=== PATIENT | male | born 1945 | race Caucasian/White ===

== ENCOUNTER 2022-04-04 16:23 | Inpatient (IN) | payer SELFPAY ==
[2022-04-04 16:29] VITALS: BMI 25.4
[2022-04-04 18:27] LABS: VENOUS BASE EXCESS 3.5 mmol/L (-2-2); VENOUS O2 SATURATION 79.6 % (70-80); VENOUS PCO2 43.7 mmHg (38-52); VENOUS PH 7.43 (7.310-7.410)
[2022-04-04 18:31] LABS: BASO % 0.1 % (0-2.0); HEMATOCRIT 40.9 % (35.4-49); HEMOGLOBIN 14.8 GM/dL (11.7-16.9); MCH 32.5 pg (25.7-33.7); MCHC 36.1 g/dl (32.0-35.9); MEAN PLT VOLUME 8.3 fl (7.5-11.1); MONO % 3.9 % (3.8-10.2); PH,URINE 5.5 (5.0-8.0); PLATELET COUNT 112 10^3/uL (134-434); RBC 4.54 M/mm3 (4.00-5.60); RDW 12.8 % (11.9-15.9); URINE APPEARANCE Error; URINE BILIRUBIN NEGATIVE (NEGATIVE); URINE COLOR YELLOW; URINE GLUCOSE (UA) 3+ (NEGATIVE); URINE KETONE NEGATIVE (NEGATIVE); URINE LEUK ESTERASE NEGATIVE (NEGATIVE); URINE NITRITE NEGATIVE (NEGATIVE); URINE PROTEIN TRACE (NEGATIVE); URINE UROBILINOGEN 0.2 mg/dL (0.2-1.0)
[2022-04-04 18:57] LABS: INR 0.99 (0.83-1.09); PROTHROMBIN TIME (PATIENT) 11.5 SEC (9.7-13.0)
[2022-04-04 19:00] LABS: ACTIVATED PTT 32.1 SECONDS (25.2-36.5)
[2022-04-04 19:01] LABS: CHLORIDE 88 mmol/L (98-107); POTASSIUM 3.7 mmol/L (3.5-5.1); SODIUM 126 mmol/L (136-145)
[2022-04-04 19:03] LABS: CALCIUM 8.1 mg/dL (8.5-10.1)
[2022-04-04 19:04] LABS: ALBUMIN 3.4 g/dl (3.4-5.0); ANION GAP 11 MMOL/L (8-16); BLOOD UREA NITROGEN 20.2 mg/dL (7-18); CO2 26 mmol/L (21-32)
[2022-04-04 19:07] LABS: CREATININE 1.1 mg/dL (0.55-1.3); SGOT/AST 28 U/L (15-37); SGPT/ALT 21 U/L (13-61)
[2022-04-04 19:08] LABS: TOT PROT 7.1 g/dl (6.4-8.2)
[2022-04-04 19:09] LABS: BILIRUBIN,TOTAL 0.6 mg/dL (0.2-1)
[2022-04-04 19:10] LABS: ALK PHOS 81 U/L (45-117)
[2022-04-04 19:12] LABS: N-TERMINAL BNP 41.4 pg/ml (5-125)
[2022-04-04 19:26] LABS: GLUCOSE,RANDOM 652 mg/dL (74-106)
[2022-04-04] MEDS ORDERED: SODIUM CHLORIDE 0.9% 500 ML INFUS.BAG IV ONE (19:44)
[2022-04-04] MEDS ORDERED: INSULIN (NOVOLOG) ASPART 100 UNITS/ML 10ML VIAL SQ ONE (19:45)
[2022-04-04] MEDS ORDERED: DEXAMETHASONE SOD PHOSPHATE 10 MG/1 ML VIAL IVPUSH ONE (19:46)
[2022-04-04] MEDS ORDERED: REMDESIVIR 200 MG in SODIUM CHLORIDE 250 ML IVPB ONE (19:46)
[2022-04-04] MEDS ORDERED: DEXAMETHASONE SOD PHOSPHATE 10 MG/1 ML VIAL ONE (20:00)
[2022-04-04] MEDS ORDERED: INSULIN (NOVOLOG) ASPART 100 UNITS/ML 10ML VIAL ONE (20:01)
[2022-04-05] MEDS ORDERED: INSULIN (LEVEMIR) 100 UNITS/ML UNITS SQ ONE ×2 (02:57→09:14)
[2022-04-05] MEDS ORDERED: DEXTROSE 50%-WATER - 25 GM/50 ML VIAL IVPUSH PRN (03:00)
[2022-04-05] MEDS: ALBUTEROL SO4 HFA INHALER IH SCH ×6 (03:32→23:23)
[2022-04-05 05:58] LABS: BASO % 0.1 % (0-2.0); HEMATOCRIT 37.1 % (35.4-49); HEMOGLOBIN 13.7 GM/dL (11.7-16.9); LYMPH % 9.6 % (8-40); MCH 32.4 pg (25.7-33.7); MCHC 36.9 g/dl (32.0-35.9); MEAN CELL VOLUME 87.8 fl (80-96); MEAN PLT VOLUME 7.6 fl (7.5-11.1); MONO % 2.4 % (3.8-10.2); NEUT % 87.9 % (42.8-82.8); PLATELET COUNT 103 10^3/uL (134-434); RBC 4.22 M/mm3 (4.00-5.60); RDW 12.7 % (11.9-15.9)
[2022-04-05 06:22] LABS: POTASSIUM 3.7 mmol/L (3.5-5.1)
[2022-04-05 06:25] LABS: CALCIUM 7.7 mg/dL (8.5-10.1)
[2022-04-05 06:26] LABS: ALBUMIN 2.9 g/dl (3.4-5.0); BLOOD UREA NITROGEN 15.6 mg/dL (7-18); MAGNESIUM 1.8 mg/dL (1.8-2.4)
[2022-04-05 06:30] LABS: CREATININE 0.7 mg/dL (0.55-1.3)
[2022-04-05 06:31] LABS: BILIRUBIN,TOTAL 0.6 mg/dL (0.2-1); TOT PROT 6.3 g/dl (6.4-8.2)
[2022-04-05] MEDS: INSULIN SLIDING SCALE (NOVOLOG) 1 VIAL SQ SCH ×4 (07:40→23:31)
[2022-04-05] MEDS ORDERED: ALBUTEROL SO4 HFA INHALER IH ONE (07:45)
[2022-04-05] MEDS ORDERED: ENOXAPARIN NA (PORCINE) 40 MG/0.4 ML DISP.SYRIN SQ ONE (09:13)
[2022-04-05] MEDS: INSULIN (LEVEMIR) 100 UNITS/ML UNITS SQ SCH ×2 (09:17→23:30)
[2022-04-05] MEDS: ENOXAPARIN NA (PORCINE) 40 MG/0.4 ML DISP.SYRIN SQ SCH (09:17)
[2022-04-05] MEDS ORDERED: INSULIN (LEVEMIR) 100 UNITS/ML UNITS SQ SCH (10:00)
[2022-04-05] MEDS: INSULIN (NOVOLOG) ASPART 100 UNITS/ML 10ML VIAL SQ SCH ×2 (10:32→16:02)
[2022-04-05] MEDS ORDERED: DEXAMETHASONE SOD PHOSPHATE 10 MG/1 ML VIAL ONE (23:27)
[2022-04-05] MEDS: DEXAMETHASONE SOD PHOSPHATE 10 MG/1 ML VIAL IVPUSH SCH (23:30)
[2022-04-06] MEDS: ALBUTEROL SO4 HFA INHALER IH SCH ×5 (04:00→21:47)
[2022-04-06 07:23] LABS: HEMATOCRIT 38.3 % (35.4-49); HEMOGLOBIN 13.9 GM/dL (11.7-16.9); LYMPH % 9.4 % (8-40); MCH 32.7 pg (25.7-33.7); MCHC 36.4 g/dl (32.0-35.9); MEAN CELL VOLUME 89.7 fl (80-96); MONO % 4.7 % (3.8-10.2); NEUT % 85.9 % (42.8-82.8); PLATELET COUNT 117 10^3/uL (134-434); RBC 4.27 M/mm3 (4.00-5.60); RDW 12.7 % (11.9-15.9); WHITE BLOOD COUNT 4.9 K/mm3 (4.0-10.0)
[2022-04-06 07:42] LABS: POTASSIUM 4.1 mmol/L (3.5-5.1)
[2022-04-06 07:43] LABS: BLOOD UREA NITROGEN 23.8 mg/dL (7-18); CALCIUM 8.3 mg/dL (8.5-10.1)
[2022-04-06 07:47] LABS: CREATININE 0.8 mg/dL (0.55-1.3)
[2022-04-06] MEDS: INSULIN SLIDING SCALE (NOVOLOG) 1 VIAL SQ SCH ×4 (08:32→21:51)
[2022-04-06] MEDS ORDERED: ENOXAPARIN NA (PORCINE) 40 MG/0.4 ML DISP.SYRIN SQ ONE (08:43)
[2022-04-06] MEDS ORDERED: LISINOPRIL 5 MG TABLET ONE (08:43)
[2022-04-06] MEDS ORDERED: TAMSULOSIN HCL 0.4 MG CAP ONE (08:43)
[2022-04-06] MEDS: INSULIN (LEVEMIR) 100 UNITS/ML UNITS SQ SCH ×2 (08:47→21:50)
[2022-04-06] MEDS: TAMSULOSIN HCL 0.4 MG CAP PO SCH (08:47)
[2022-04-06] MEDS: LISINOPRIL 5 MG TABLET PO SCH (09:12)
[2022-04-06] MEDS: ENOXAPARIN NA (PORCINE) 40 MG/0.4 ML DISP.SYRIN SQ SCH (09:13)
[2022-04-06] MEDS ORDERED: REMDESIVIR 100 MG in SODIUM CHLORIDE 250 ML IVPB SCH (10:00)
[2022-04-06] MEDS: INSULIN (NOVOLOG) ASPART 100 UNITS/ML 10ML VIAL SQ SCH ×2 (12:20→17:17)
[2022-04-06] MEDS ORDERED: INSULIN (NOVOLOG) ASPART 100 UNITS/ML 10ML VIAL SQ ONE (14:16)
[2022-04-06] MEDS ORDERED: INSULIN REGULAR HUMAN 100 UNITS/ML *VIAL IVPUSH ONE (14:16)
[2022-04-06] MEDS: ATORVASTATIN CA 20 MG TABLET (FP) PO SCH (21:47)
[2022-04-06] MEDS: DEXAMETHASONE SOD PHOSPHATE 10 MG/1 ML VIAL IVPUSH SCH (21:48)
[2022-04-07] MEDS: ALBUTEROL SO4 HFA INHALER IH SCH ×7 (00:15→23:58)
[2022-04-07] MEDS: INSULIN (LEVEMIR) 100 UNITS/ML UNITS SQ SCH ×3 (06:50→23:59)
[2022-04-07] MEDS: INSULIN SLIDING SCALE (NOVOLOG) 1 VIAL SQ SCH ×4 (06:51→23:58)
[2022-04-07] MEDS: INSULIN (NOVOLOG) ASPART 100 UNITS/ML 10ML VIAL SQ SCH ×4 (06:51→19:07)
[2022-04-07 07:10] LABS: POTASSIUM 3.9 mmol/L (3.5-5.1)
[2022-04-07 07:13] LABS: HEMATOCRIT 36.9 % (35.4-49); HEMOGLOBIN 13.2 GM/dL (11.7-16.9); LYMPH % 7.1 % (8-40); MCH 32.1 pg (25.7-33.7); MCHC 35.7 g/dl (32.0-35.9); MEAN CELL VOLUME 90.1 fl (80-96); MEAN PLT VOLUME 8.3 fl (7.5-11.1); MONO % 3.9 % (3.8-10.2); PLATELET COUNT 125 10^3/uL (134-434); RDW 12.6 % (11.9-15.9); WHITE BLOOD COUNT 5.2 K/mm3 (4.0-10.0)
[2022-04-07 07:14] LABS: BLOOD UREA NITROGEN 24.9 mg/dL (7-18)
[2022-04-07 07:17] LABS: CREATININE 0.7 mg/dL (0.55-1.3)
[2022-04-07] MEDS ORDERED: INSULIN (NOVOLOG) ASPART 100 UNITS/ML 10ML VIAL SQ ONE (08:30)
[2022-04-07] MEDS ORDERED: INSULIN (LEVEMIR) 100 UNITS/ML UNITS SQ ONE (08:30)
[2022-04-07] MEDS: TAMSULOSIN HCL 0.4 MG CAP PO SCH (08:41)
[2022-04-07] MEDS: REMDESIVIR 100 MG in SODIUM CHLORIDE 250 ML IVPB SCH (11:21)
[2022-04-07] MEDS: LISINOPRIL 5 MG TABLET PO SCH (11:22)
[2022-04-07] MEDS: ATORVASTATIN CA 20 MG TABLET (FP) PO SCH (23:49)
[2022-04-08] MEDS: ALBUTEROL SO4 HFA INHALER IH SCH ×6 (04:10→22:39)
[2022-04-08] MEDS: INSULIN SLIDING SCALE (NOVOLOG) 1 VIAL SQ SCH ×4 (06:32→21:31)
[2022-04-08] MEDS: INSULIN (NOVOLOG) ASPART 100 UNITS/ML 10ML VIAL SQ SCH ×3 (06:57→16:42)
[2022-04-08] MEDS: INSULIN (LEVEMIR) 100 UNITS/ML UNITS SQ SCH ×2 (06:59→21:29)
[2022-04-08] MEDS: TAMSULOSIN HCL 0.4 MG CAP PO SCH (08:04)
[2022-04-08 09:50] LABS: BASO % 0.1 % (0-2.0); HEMOGLOBIN 13.1 GM/dL (11.7-16.9); LYMPH % 23.3 % (8-40); MCH 31.4 pg (25.7-33.7); MCHC 35.5 g/dl (32.0-35.9); MEAN CELL VOLUME 88.4 fl (80-96); MEAN PLT VOLUME 8.3 fl (7.5-11.1); NEUT % 67.6 % (42.8-82.8); PLATELET COUNT 147 10^3/uL (134-434); RBC 4.19 M/mm3 (4.00-5.60); RDW 12.8 % (11.9-15.9); WHITE BLOOD COUNT 5.1 K/mm3 (4.0-10.0)
[2022-04-08 10:02] LABS: CALCIUM 7.8 mg/dL (8.5-10.1)
[2022-04-08 10:06] LABS: CREATININE 0.5 mg/dL (0.55-1.3)
[2022-04-08] MEDS: LISINOPRIL 5 MG TABLET PO SCH (10:56)
[2022-04-08] MEDS: REMDESIVIR 100 MG in SODIUM CHLORIDE 250 ML IVPB SCH (10:56)
[2022-04-08] MEDS ORDERED: POTASSIUM CHLORIDE TABS 20 MEQ TABLET.ER (FP) PO ONE (15:25)
[2022-04-08] MEDS: ATORVASTATIN CA 20 MG TABLET (FP) PO SCH (21:29)
[2022-04-09] MEDS: ALBUTEROL SO4 HFA INHALER IH SCH ×6 (04:21→22:19)
[2022-04-09] MEDS: INSULIN SLIDING SCALE (NOVOLOG) 1 VIAL SQ SCH ×4 (06:08→22:11)
[2022-04-09] MEDS: INSULIN (LEVEMIR) 100 UNITS/ML UNITS SQ SCH ×2 (06:27→22:14)
[2022-04-09 08:26] LABS: HEMATOCRIT 38.2 % (35.4-49); HEMOGLOBIN 13.8 GM/dL (11.7-16.9); MCH 31.9 pg (25.7-33.7); MEAN CELL VOLUME 88.5 fl (80-96); MEAN PLT VOLUME 7.8 fl (7.5-11.1); PLATELET COUNT 166 10^3/uL (134-434); RBC 4.32 M/mm3 (4.00-5.60); RDW 12.7 % (11.9-15.9); WHITE BLOOD COUNT 5.1 K/mm3 (4.0-10.0)
[2022-04-09] MEDS: INSULIN (NOVOLOG) ASPART 100 UNITS/ML 10ML VIAL SQ SCH ×3 (08:28→17:08)
[2022-04-09 08:39] LABS: CHLORIDE 98 mmol/L (98-107); SODIUM 133 mmol/L (136-145)
[2022-04-09 08:43] LABS: BLOOD UREA NITROGEN 11.9 mg/dL (7-18); CALCIUM 7.6 mg/dL (8.5-10.1); CO2 26 mmol/L (21-32); GLUCOSE,RANDOM 77 mg/dL (74-106)
[2022-04-09 08:44] LABS: MAGNESIUM 1.4 mg/dL (1.8-2.4)
[2022-04-09 08:46] LABS: CREATININE 0.5 mg/dL (0.55-1.3); PHOSPHOROUS 3.7 mg/dL (2.5-4.9)
[2022-04-09 08:49] LABS: ANION GAP 9 MMOL/L (8-16); POTASSIUM 2.9 mmol/L (3.5-5.1)
[2022-04-09] MEDS ORDERED: MAGNESIUM SULF 50% (8.12 MEQ/2 ML-1 GM VIAL) IVPB ONE (09:04)
[2022-04-09] MEDS: TAMSULOSIN HCL 0.4 MG CAP PO SCH (09:53)
[2022-04-09] MEDS: LISINOPRIL 5 MG TABLET PO SCH (09:53)
[2022-04-09] MEDS: POTASSIUM CHLORIDE ORAL LIQUID 20 MEQ/15 ML PO SCH ×2 (09:53→22:18)
[2022-04-09] MEDS: REMDESIVIR 100 MG in SODIUM CHLORIDE 250 ML IVPB SCH (10:28)
[2022-04-09] MEDS ORDERED: POTASSIUM CHLORIDE TABS 20 MEQ TABLET.ER (FP) PO ONE (14:10)
[2022-04-09] MEDS: ATORVASTATIN CA 20 MG TABLET (FP) PO SCH (22:18)
[2022-04-10] MEDS: ALBUTEROL SO4 HFA INHALER IH SCH ×6 (03:38→22:30)
[2022-04-10] MEDS: INSULIN SLIDING SCALE (NOVOLOG) 1 VIAL SQ SCH ×5 (06:22→21:58)
[2022-04-10] MEDS: INSULIN (LEVEMIR) 100 UNITS/ML UNITS SQ SCH ×2 (06:23→21:54)
[2022-04-10] MEDS: INSULIN (NOVOLOG) ASPART 100 UNITS/ML 10ML VIAL SQ SCH ×3 (06:24→17:24)
[2022-04-10 07:55] LABS: POTASSIUM 3.9 mmol/L (3.5-5.1)
[2022-04-10 08:03] LABS: BLOOD UREA NITROGEN 12.7 mg/dL (7-18); CALCIUM 7.9 mg/dL (8.5-10.1)
[2022-04-10 08:04] LABS: MAGNESIUM 1.5 mg/dL (1.8-2.4)
[2022-04-10 08:06] LABS: CREATININE 0.5 mg/dL (0.55-1.3)
[2022-04-10 08:07] LABS: PHOSPHOROUS 2.8 mg/dL (2.5-4.9)
[2022-04-10 08:55] LABS: HEMOGLOBIN 13.7 GM/dL (11.7-16.9); MCHC 36.2 g/dl (32.0-35.9); MEAN CELL VOLUME 88.4 fl (80-96); MEAN PLT VOLUME 7.9 fl (7.5-11.1); PLATELET COUNT 204 10^3/uL (134-434); RBC 4.29 M/mm3 (4.00-5.60); RDW 12.5 % (11.9-15.9); WHITE BLOOD COUNT 4.7 K/mm3 (4.0-10.0)
[2022-04-10] MEDS: POTASSIUM CHLORIDE ORAL LIQUID 20 MEQ/15 ML PO SCH ×2 (10:39→21:54)
[2022-04-10] MEDS: TAMSULOSIN HCL 0.4 MG CAP PO SCH (10:39)
[2022-04-10] MEDS: LISINOPRIL 5 MG TABLET PO SCH (10:39)
[2022-04-10] MEDS ORDERED: MAGNESIUM SULF 50% (8.12 MEQ/2 ML-1 GM VIAL) IVPB ONE (14:30)
[2022-04-10] MEDS: DEXAMETHASONE 4 MG TABLET (FP) PO SCH (18:47)
[2022-04-10] MEDS: ATORVASTATIN CA 20 MG TABLET (FP) PO SCH (21:54)
[2022-04-11] MEDS: ALBUTEROL SO4 HFA INHALER IH SCH ×6 (03:33→23:00)
[2022-04-11] MEDS: INSULIN (LEVEMIR) 100 UNITS/ML UNITS SQ SCH ×2 (06:31→21:12)
[2022-04-11] MEDS: INSULIN (NOVOLOG) ASPART 100 UNITS/ML 10ML VIAL SQ SCH ×3 (06:31→17:08)
[2022-04-11] MEDS: INSULIN SLIDING SCALE (NOVOLOG) 1 VIAL SQ SCH ×4 (06:32→21:13)
[2022-04-11 07:12] LABS: HEMATOCRIT 40.2 % (35.4-49); HEMOGLOBIN 14.3 GM/dL (11.7-16.9); MCHC 35.6 g/dl (32.0-35.9); MEAN PLT VOLUME 7.9 fl (7.5-11.1); PLATELET COUNT 236 10^3/uL (134-434); RBC 4.46 M/mm3 (4.00-5.60); RDW 12.7 % (11.9-15.9); WHITE BLOOD COUNT 3.4 K/mm3 (4.0-10.0)
[2022-04-11 07:34] LABS: CALCIUM 8.3 mg/dL (8.5-10.1)
[2022-04-11 07:35] LABS: ALBUMIN 2.8 g/dl (3.4-5.0); BLOOD UREA NITROGEN 18.5 mg/dL (7-18); MAGNESIUM 2.1 mg/dL (1.8-2.4)
[2022-04-11 07:38] LABS: PHOSPHOROUS 3.2 mg/dL (2.5-4.9)
[2022-04-11 07:39] LABS: BILIRUBIN,TOTAL 0.7 mg/dL (0.2-1); TOT PROT 6.4 g/dl (6.4-8.2)
[2022-04-11 07:41] LABS: CREATININE 0.6 mg/dL (0.55-1.3)
[2022-04-11] MEDS: TAMSULOSIN HCL 0.4 MG CAP PO SCH (10:27)
[2022-04-11] MEDS: LISINOPRIL 5 MG TABLET PO SCH (10:27)
[2022-04-11] MEDS: POTASSIUM CHLORIDE ORAL LIQUID 20 MEQ/15 ML PO SCH (10:27)
[2022-04-11] MEDS: DEXAMETHASONE 4 MG TABLET (FP) PO SCH (10:27)
[2022-04-11] MEDS: ATORVASTATIN CA 20 MG TABLET (FP) PO SCH (21:12)
[2022-04-12] MEDS: ALBUTEROL SO4 HFA INHALER IH SCH ×6 (02:27→22:31)
[2022-04-12] MEDS: INSULIN (NOVOLOG) ASPART 100 UNITS/ML 10ML VIAL SQ SCH ×3 (06:18→16:29)
[2022-04-12] MEDS: INSULIN (LEVEMIR) 100 UNITS/ML UNITS SQ SCH ×2 (06:18→22:30)
[2022-04-12] MEDS: INSULIN SLIDING SCALE (NOVOLOG) 1 VIAL SQ SCH ×4 (06:19→22:30)
[2022-04-12 08:14] LABS: BASO % 0.1 % (0-2.0); HEMATOCRIT 38.6 % (35.4-49); HEMOGLOBIN 13.3 GM/dL (11.7-16.9); LYMPH % 5.9 % (8-40); MCH 31.1 pg (25.7-33.7); MCHC 34.5 g/dl (32.0-35.9); MEAN PLT VOLUME 7.5 fl (7.5-11.1); MONO % 5.4 % (3.8-10.2); NEUT % 88.6 % (42.8-82.8); PLATELET COUNT 268 10^3/uL (134-434); RBC 4.29 M/mm3 (4.00-5.60); RDW 12.7 % (11.9-15.9)
[2022-04-12 08:37] LABS: POTASSIUM 4.3 mmol/L (3.5-5.1)
[2022-04-12 08:43] LABS: ALBUMIN 2.6 g/dl (3.4-5.0); BLOOD UREA NITROGEN 22.6 mg/dL (7-18); CALCIUM 8.1 mg/dL (8.5-10.1); MAGNESIUM 1.9 mg/dL (1.8-2.4)
[2022-04-12 08:45] LABS: CREATININE 0.6 mg/dL (0.55-1.3)
[2022-04-12 08:46] LABS: BILIRUBIN,TOTAL 0.6 mg/dL (0.2-1); PHOSPHOROUS 3.3 mg/dL (2.5-4.9)
[2022-04-12 09:04] LABS: ERYTHROCYTE SEDIMENTATION RATE 61 mm/hr (0-20)
[2022-04-12] MEDS: LISINOPRIL 5 MG TABLET PO SCH (09:06)
[2022-04-12] MEDS: DEXAMETHASONE 4 MG TABLET (FP) PO SCH (09:06)
[2022-04-12] MEDS: TAMSULOSIN HCL 0.4 MG CAP PO SCH (09:06)
[2022-04-12] MEDS: ENOXAPARIN NA (PORCINE) 40 MG/0.4 ML DISP.SYRIN SQ SCH (13:47)
[2022-04-12] MEDS: ATORVASTATIN CA 20 MG TABLET (FP) PO SCH (22:25)
[2022-04-13] MEDS: ALBUTEROL SO4 HFA INHALER IH SCH ×6 (02:57→22:26)
[2022-04-13] MEDS: INSULIN (LEVEMIR) 100 UNITS/ML UNITS SQ SCH ×2 (06:31→22:25)
[2022-04-13] MEDS: INSULIN (NOVOLOG) ASPART 100 UNITS/ML 10ML VIAL SQ SCH ×2 (06:32→17:05)
[2022-04-13] MEDS: INSULIN SLIDING SCALE (NOVOLOG) 1 VIAL SQ SCH ×4 (06:32→22:25)
[2022-04-13] MEDS: DEXAMETHASONE 4 MG TABLET (FP) PO SCH (09:39)
[2022-04-13] MEDS: LISINOPRIL 5 MG TABLET PO SCH (09:40)
[2022-04-13] MEDS: ENOXAPARIN NA (PORCINE) 40 MG/0.4 ML DISP.SYRIN SQ SCH (09:40)
[2022-04-13] MEDS: TAMSULOSIN HCL 0.4 MG CAP PO SCH (09:41)
[2022-04-13 10:04] LABS: HEMATOCRIT 37.2 % (35.4-49); HEMOGLOBIN 13.5 GM/dL (11.7-16.9); MCH 32.4 pg (25.7-33.7); MCHC 36.2 g/dl (32.0-35.9); MEAN CELL VOLUME 89.6 fl (80-96); MEAN PLT VOLUME 8.1 fl (7.5-11.1); PLATELET COUNT 245 10^3/uL (134-434); RBC 4.15 M/mm3 (4.00-5.60); RDW 12.5 % (11.9-15.9); WHITE BLOOD COUNT 7.2 K/mm3 (4.0-10.0)
[2022-04-13 10:17] LABS: POTASSIUM 4.1 mmol/L (3.5-5.1)
[2022-04-13 10:18] LABS: CALCIUM 8.3 mg/dL (8.5-10.1)
[2022-04-13 10:19] LABS: BLOOD UREA NITROGEN 22.2 mg/dL (7-18); MAGNESIUM 1.6 mg/dL (1.8-2.4)
[2022-04-13 10:22] LABS: CREATININE 0.7 mg/dL (0.55-1.3); PHOSPHOROUS 2.5 mg/dL (2.5-4.9)
[2022-04-13] MEDS ORDERED: INSULIN SLIDING SCALE (NOVOLOG) 1 VIAL SQ SCH (16:30)
[2022-04-13] MEDS: ATORVASTATIN CA 20 MG TABLET (FP) PO SCH (22:26)
[2022-04-14] MEDS: ALBUTEROL SO4 HFA INHALER IH SCH ×6 (02:26→23:35)
[2022-04-14] MEDS: INSULIN (NOVOLOG) ASPART 100 UNITS/ML 10ML VIAL SQ SCH ×3 (06:10→16:59)
[2022-04-14] MEDS: INSULIN SLIDING SCALE (NOVOLOG) 1 VIAL SQ SCH ×4 (06:11→21:38)
[2022-04-14] MEDS ORDERED: INSULIN (LEVEMIR) 100 UNITS/ML UNITS SQ SCH ×2 (07:00→21:47)
[2022-04-14] MEDS: DEXAMETHASONE 4 MG TABLET (FP) PO SCH (10:16)
[2022-04-14] MEDS: ENOXAPARIN NA (PORCINE) 40 MG/0.4 ML DISP.SYRIN SQ SCH (10:16)
[2022-04-14] MEDS: TAMSULOSIN HCL 0.4 MG CAP PO SCH (10:16)
[2022-04-14] MEDS: LISINOPRIL 5 MG TABLET PO SCH (10:16)
[2022-04-14 11:34] LABS: POTASSIUM 3.6 mmol/L (3.5-5.1)
[2022-04-14 11:36] LABS: ALBUMIN 2.8 g/dl (3.4-5.0); CALCIUM 8.3 mg/dL (8.5-10.1)
[2022-04-14 11:37] LABS: BLOOD UREA NITROGEN 17.9 mg/dL (7-18); MAGNESIUM 1.6 mg/dL (1.8-2.4)
[2022-04-14 11:40] LABS: CREATININE 0.7 mg/dL (0.55-1.3)
[2022-04-14 11:42] LABS: BILIRUBIN,TOTAL 0.5 mg/dL (0.2-1); TOT PROT 6.2 g/dl (6.4-8.2)
[2022-04-14] MEDS ORDERED: SODIUM CHLORIDE 250 ML IV STA (13:30)
[2022-04-14] MEDS ORDERED: MAGNESIUM 1GM/D5W 100ML - 100 ML IVPB IVPB ONE (14:00)
[2022-04-14 20:29] LABS: POTASSIUM 3.8 mmol/L (3.5-5.1)
[2022-04-14 20:31] LABS: CALCIUM 8.3 mg/dL (8.5-10.1)
[2022-04-14 20:32] LABS: BLOOD UREA NITROGEN 21.2 mg/dL (7-18); MAGNESIUM 1.7 mg/dL (1.8-2.4)
[2022-04-14 20:35] LABS: CREATININE 0.9 mg/dL (0.55-1.3)
[2022-04-14 20:45] VITALS: RESP 18
[2022-04-14] MEDS ORDERED: MAGNESIUM SULF 50% (8.12 MEQ/2 ML-1 GM VIAL) IVPB ONE (21:00)
[2022-04-14] MEDS: ATORVASTATIN CA 20 MG TABLET (FP) PO SCH (21:38)
[2022-04-14] MEDS: INSULIN (LEVEMIR) 100 UNITS/ML UNITS SQ SCH (21:38)
[2022-04-15] MEDS: ALBUTEROL SO4 HFA INHALER IH SCH ×6 (03:39→22:54)
[2022-04-15] MEDS: INSULIN SLIDING SCALE (NOVOLOG) 1 VIAL SQ SCH ×4 (06:40→21:37)
[2022-04-15] MEDS: INSULIN (NOVOLOG) ASPART 100 UNITS/ML 10ML VIAL SQ SCH ×3 (06:41→16:57)
[2022-04-15 07:08] LABS: HEMATOCRIT 36.1 % (35.4-49); MEAN CELL VOLUME 88.9 fl (80-96); MEAN PLT VOLUME 7.1 fl (7.5-11.1); PLATELET COUNT 260 10^3/uL (134-434); RBC 4.06 M/mm3 (4.00-5.60); RDW 12.8 % (11.9-15.9); WHITE BLOOD COUNT 5.3 K/mm3 (4.0-10.0)
[2022-04-15 07:22] LABS: POTASSIUM 3.7 mmol/L (3.5-5.1)
[2022-04-15 07:26] LABS: BLOOD UREA NITROGEN 18.1 mg/dL (7-18); MAGNESIUM 1.8 mg/dL (1.8-2.4)
[2022-04-15 07:29] LABS: CREATININE 0.6 mg/dL (0.55-1.3); PHOSPHOROUS 3.4 mg/dL (2.5-4.9)
[2022-04-15] MEDS: INSULIN (LEVEMIR) 100 UNITS/ML UNITS SQ SCH ×2 (10:59→11:02)
[2022-04-15] MEDS: TAMSULOSIN HCL 0.4 MG CAP PO SCH (11:01)
[2022-04-15] MEDS: ENOXAPARIN NA (PORCINE) 40 MG/0.4 ML DISP.SYRIN SQ SCH (11:01)
[2022-04-15] MEDS: LISINOPRIL 5 MG TABLET PO SCH (11:04)
[2022-04-15] MEDS ORDERED: INSULIN (LEVEMIR) 100 UNITS/ML UNITS SQ SCH ×2 (11:15)
[2022-04-15] MEDS: ATORVASTATIN CA 20 MG TABLET (FP) PO SCH (21:37)
[2022-04-16] MEDS: ALBUTEROL SO4 HFA INHALER IH SCH ×4 (02:29→15:30)
[2022-04-16] MEDS: INSULIN SLIDING SCALE (NOVOLOG) 1 VIAL SQ SCH ×3 (06:25→16:34)
[2022-04-16] MEDS: INSULIN (NOVOLOG) ASPART 100 UNITS/ML 10ML VIAL SQ SCH ×3 (06:25→16:35)
[2022-04-16] MEDS ORDERED: INSULIN (LEVEMIR) 100 UNITS/ML UNITS SQ SCH ×4 (07:00→22:00)
[2022-04-16] MEDS ORDERED: INSULIN (NOVOLOG) ASPART 100 UNITS/ML 10ML VIAL SQ SCH (07:32)
[2022-04-16] MEDS: TAMSULOSIN HCL 0.4 MG CAP PO SCH (08:06)
[2022-04-16 08:11] LABS: HEMOGLOBIN 14.2 GM/dL (11.7-16.9); MCH 32.2 pg (25.7-33.7); MCHC 36.5 g/dl (32.0-35.9); MEAN CELL VOLUME 88.2 fl (80-96); MEAN PLT VOLUME 7.1 fl (7.5-11.1); PLATELET COUNT 282 10^3/uL (134-434); RBC 4.42 M/mm3 (4.00-5.60); RDW 12.7 % (11.9-15.9); WHITE BLOOD COUNT 8.3 K/mm3 (4.0-10.0)
[2022-04-16 08:26] LABS: POTASSIUM 3.8 mmol/L (3.5-5.1)
[2022-04-16 08:33] LABS: CALCIUM 8.3 mg/dL (8.5-10.1)
[2022-04-16 08:34] LABS: BLOOD UREA NITROGEN 14.2 mg/dL (7-18)
[2022-04-16 08:35] LABS: CREATININE 0.6 mg/dL (0.55-1.3)
[2022-04-16] MEDS: ENOXAPARIN NA (PORCINE) 40 MG/0.4 ML DISP.SYRIN SQ SCH (09:00)
[2022-04-16] MEDS: LISINOPRIL 5 MG TABLET PO SCH (09:00)
[2022-04-16 14:28] VITALS: BP 117/67; PULSE 97; TEMP 97.9
== END 2022-04-16 18:55 | disposition home or self-care (01) | DRG 137 ==
LOC: JER 16:23 → OBSVTOIN 04-05 00:54 → INTOOBSV 04-05 00:54 → JERBED 04-05 00:54 → J4S 04-06 13:34
PROVIDERS: ADMIT Internal Medicine; ATTEND Internal Medicine
PROC: XW033E5 Introduction of Remdesivir Anti-infective into Peripheral Vein, Percutaneous Approach, New Technology Group 5 (ICD-10-PCS; principal; 2022-04-04)
DX: U07.1 COVID-19 (principal); E11.00 Type 2 diabetes mellitus with hyperosmolarity without nonketotic hyperglycemic-hyperosmolar coma (NKHHC); J12.82 Pneumonia due to coronavirus disease 2019; E11.40 Type 2 diabetes mellitus with diabetic neuropathy, unspecified; E83.42 Hypomagnesemia; E87.1 Hypo-osmolality and hyponatremia; R04.2 Hemoptysis; E78.5 Hyperlipidemia, unspecified; I10 Essential (primary) hypertension; M54.16 Radiculopathy, lumbar region; N40.0 Benign prostatic hyperplasia without lower urinary tract symptoms; R09.02 Hypoxemia; E87.6 Hypokalemia
CPT/HCPCS: 0241U-QW; 36415; 71045-TC-FY; 71046-TC-FY; 71275-TC; 74174-TC; 80048; 80053; 80061; 81003; 82803; 82962; 83036; 83735; 83880; 84100; 84443; 84484; 85025; 85027; 85379; 85610; 85651; 85730; 86140; 86480; 87086; 93005; 93010; 94010; 94761; 99285-25; C9399; J1100; Q9967

== ENCOUNTER 2023-06-11 15:36 | Inpatient (IN) | payer SELFPAY ==
[2023-06-11 17:40] LABS: INR 0.99 (0.83-1.09); PROTHROMBIN TIME (PATIENT) 11.2 SEC (9.7-13.0)
[2023-06-11 17:53] LABS: CHLORIDE 88 mmol/L (98-107); SODIUM 125 mmol/L (136-145)
[2023-06-11 17:55] LABS: ALBUMIN 3.6 g/dl (3.4-5.0); CALCIUM 8.8 mg/dL (8.5-10.1); CO2 28 mmol/L (21-32)
[2023-06-11 17:56] LABS: BLOOD UREA NITROGEN 5.9 mg/dL (7-18); GLUCOSE,RANDOM 103 mg/dL (74-106); MAGNESIUM 1.6 mg/dL (1.8-2.4)
[2023-06-11 17:58] LABS: CREATININE 0.5 mg/dL (0.55-1.3); SGPT/ALT 83 U/L (13-61)
[2023-06-11 17:59] LABS: SGOT/AST 66 U/L (15-37)
[2023-06-11 18:00] LABS: BILIRUBIN,TOTAL 1.3 mg/dL (0.2-1); TOT PROT 6.7 g/dl (6.4-8.2)
[2023-06-11 18:01] LABS: ALK PHOS 53 U/L (45-117)
[2023-06-11 18:03] LABS: ANION GAP 8 mmol/L (4-13); POTASSIUM 2.6 mmol/L (3.5-5.1)
[2023-06-11 18:33] LABS: BASO % 0.3 % (0-2.0); EOS % 0.3 % (0-4.5); HEMATOCRIT 40.1 % (35.4-49); LYMPH % 29.2 % (8-40); MCH 33.8 pg (25.7-33.7); MCHC 36.5 g/dl (32.0-35.9); MEAN CELL VOLUME 92.7 fl (80-96); MEAN PLT VOLUME 6.3 fl (7.5-11.1); MONO % 15.2 % (3.8-10.2); PLATELET COUNT 155 10^3/uL (134-434); RBC 4.33 M/mm3 (4.00-5.60); RDW 13.3 % (11.9-15.9); WHITE BLOOD COUNT 3.9 K/mm3 (4.0-10.0)
[2023-06-11 18:42] LABS: HEMOGLOBIN 14.6 GM/dL (11.7-16.9)
[2023-06-11 18:55] LABS: EPI CELLS 1 /uL (0-25.1); HYALINE CASTS 0 /uL (0-3.1); PH,URINE 6.5 (5.0-8.0); URINE APPEARANCE CLEAR; URINE BACTERIA 5 /uL (0-1359); URINE BILIRUBIN NEGATIVE (NEGATIVE); URINE COLOR YELLOW; URINE GLUCOSE (UA) NEGATIVE (NEGATIVE); URINE KETONE NEGATIVE (NEGATIVE); URINE LEUK ESTERASE TRACE (NEGATIVE); URINE NITRITE NEGATIVE (NEGATIVE); URINE PROTEIN TRACE (NEGATIVE); URINE RBC 5 /uL (0-23.9); URINE WBC 10 /uL (0-25.8)
[2023-06-11] MEDS ORDERED: POTASSIUM CHLORIDE ORAL LIQUID 20 MEQ/15 ML ONE (18:56)
[2023-06-11] MEDS ORDERED: MAGNESIUM SULFATE IN WATER 2 GM/50 ML IVPB IVPB ONE (18:56)
[2023-06-11] MEDS: POTASSIUM CHLORIDE ORAL LIQUID 20 MEQ/15 ML PO ONE (19:03)
[2023-06-11] MEDS: MAGNESIUM SULFATE IN WATER 2 GM/50 ML IVPB IVPB ONE (19:03)
[2023-06-11] MEDS ORDERED: KCL 10 MEQ IVPB 20 MEQ/200 ML INFUS.BAG IVPB ONE (20:13)
[2023-06-11] MEDS: SODIUM CHLORIDE 0.9% 500 ML INFUS.BAG IV ONE (20:25)
[2023-06-11] MEDS: KCL 10 MEQ IVPB 10 MEQ/100 ML INFUS.BAG IVPB SCH (20:25)
[2023-06-11] MEDS ORDERED: SODIUM CHLORIDE 1,000 ML with POTASSIUM CHLORIDE 40 MEQ IV SCH (21:15)
[2023-06-11] MEDS ORDERED: KCL 10 MEQ IVPB 10 MEQ/100 ML INFUS.BAG IVPB ONE (22:23)
[2023-06-12] MEDS: POTASSIUM CHLORIDE 40 MEQ in SODIUM CHLORIDE 1,000 ML IV SCH ×2 (00:24→21:39)
[2023-06-12] MEDS: amLODIPine BESYLATE 5 MG TABLET (FP) PO ONE (04:43)
[2023-06-12 06:44] LABS: HEMATOCRIT 38.5 % (35.4-49); HEMOGLOBIN 14.1 GM/dL (11.7-16.9); MCH 33.9 pg (25.7-33.7); MCHC 36.5 g/dl (32.0-35.9); MEAN PLT VOLUME 6.8 fl (7.5-11.1); PLATELET COUNT 150 10^3/uL (134-434); RBC 4.14 M/mm3 (4.00-5.60); RDW 13.6 % (11.9-15.9); WHITE BLOOD COUNT 4.4 K/mm3 (4.0-10.0)
[2023-06-12 07:02] LABS: POTASSIUM 3.4 mmol/L (3.5-5.1)
[2023-06-12 07:07] LABS: CALCIUM 8.5 mg/dL (8.5-10.1)
[2023-06-12 07:08] LABS: ALBUMIN 3.3 g/dl (3.4-5.0); BLOOD UREA NITROGEN 5.9 mg/dL (7-18)
[2023-06-12 07:11] LABS: CREATININE 0.4 mg/dL (0.55-1.3); MAGNESIUM 1.7 mg/dL (1.8-2.4); PHOSPHOROUS 2.8 mg/dL (2.5-4.9); TOT PROT 6.2 g/dl (6.4-8.2)
[2023-06-12 07:13] LABS: BILIRUBIN,TOTAL 2.2 mg/dL (0.2-1)
[2023-06-12] MEDS: TAMSULOSIN HCL 0.4 MG CAP PO SCH (08:14)
[2023-06-12] MEDS: ENOXAPARIN NA (PORCINE) 40 MG/0.4 ML DISP.SYRIN SQ SCH (10:15)
[2023-06-12] MEDS: LISINOPRIL 5 MG TABLET PO SCH (10:16)
[2023-06-12] MEDS: MAGNESIUM 2GM/50ML STERILE WATER IVPB IVPB ONE (10:16)
[2023-06-12 11:44] LABS: BILIRUBIN,DIRECT 0.5 mg/dL (0.0-0.2)
[2023-06-12] MEDS: POTASSIUM CHLORIDE ORAL LIQUID 20 MEQ/15 ML PO ONE (11:56)
[2023-06-12] MEDS ORDERED: ATORVASTATIN CA 40 MG TABLET (FP) PO SCH (22:00)
[2023-06-12 23:04] LABS: URINE APPEARANCE CLEAR; URINE BILIRUBIN NEGATIVE (NEGATIVE); URINE COLOR YELLOW; URINE GLUCOSE (UA) NEGATIVE (NEGATIVE); URINE KETONE NEGATIVE (NEGATIVE); URINE LEUK ESTERASE NEGATIVE (NEGATIVE); URINE NITRITE NEGATIVE (NEGATIVE); URINE PROTEIN NEGATIVE (NEGATIVE); URINE UROBILINOGEN 4.0 E.U/dl mg/dL (0.2-1.0)
[2023-06-13 08:16] LABS: BASO % 0.4 % (0-2.0); EOS % 0.7 % (0-4.5); HEMATOCRIT 37.5 % (35.4-49); HEMOGLOBIN 13.9 GM/dL (11.7-16.9); LYMPH % 19.4 % (8-40); MCH 34.7 pg (25.7-33.7); MCHC 37.2 g/dl (32.0-35.9); MEAN CELL VOLUME 93.2 fl (80-96); MEAN PLT VOLUME 6.9 fl (7.5-11.1); MONO % 13.9 % (3.8-10.2); NEUT % 65.6 % (42.8-82.8); PLATELET COUNT 159 10^3/uL (134-434); RBC 4.02 M/mm3 (4.00-5.60); WHITE BLOOD COUNT 4.4 K/mm3 (4.0-10.0)
[2023-06-13 08:42] LABS: CHLORIDE 97 mmol/L (98-107); SODIUM 135 mmol/L (136-145)
[2023-06-13 09:06] LABS: CALCIUM 8.8 mg/dL (8.5-10.1)
[2023-06-13 09:07] LABS: ALBUMIN 3.3 g/dl (3.4-5.0); BLOOD UREA NITROGEN 8.5 mg/dL (7-18); CO2 26 mmol/L (21-32); GLUCOSE,RANDOM 106 mg/dL (74-106)
[2023-06-13 09:10] LABS: CREATININE 0.4 mg/dL (0.55-1.3); SGOT/AST 50 U/L (15-37); SGPT/ALT 67 U/L (13-61)
[2023-06-13 09:11] LABS: TOT PROT 6.3 g/dl (6.4-8.2)
[2023-06-13 09:12] LABS: BILIRUBIN,TOTAL 1.4 mg/dL (0.2-1)
[2023-06-13 09:13] LABS: ALK PHOS 46 U/L (45-117)
[2023-06-13 09:24] LABS: ANION GAP 12 mmol/L (4-13); POTASSIUM 2.9 mmol/L (3.5-5.1)
[2023-06-13] MEDS: LORazepam 1 MG TABLET PO ONE (10:19)
[2023-06-13] MEDS: ASPIRIN COATED 81 MG TABLET.EC PO SCH (10:19)
[2023-06-13] MEDS: LISINOPRIL 10 MG TABLET PO SCH (10:23)
[2023-06-13] MEDS: amLODIPine BESYLATE 5 MG TABLET (FP) PO SCH (10:23)
[2023-06-13] MEDS: MAGNESIUM SULF 50% (8.12 MEQ/2 ML-1 GM VIAL) IVPB ONE (11:04)
[2023-06-13] MEDS: POTASSIUM CHLORIDE ORAL LIQUID 20 MEQ/15 ML PO ONE (11:04)
[2023-06-13] MEDS: POTASSIUM CHLORIDE TABS 20 MEQ TABLET.ER (FP) PO ONE (14:57)
[2023-06-13] MEDS: THIAMINE HCL 200 MG/2 ML VIAL IVPB SCH (23:45)
[2023-06-14 07:54] LABS: POTASSIUM 3.5 mmol/L (3.5-5.1)
[2023-06-14] MEDS: TAMSULOSIN HCL 0.4 MG CAP PO SCH (07:57)
[2023-06-14 08:01] LABS: ALBUMIN 3.4 g/dl (3.4-5.0); BLOOD UREA NITROGEN 7.2 mg/dL (7-18); MAGNESIUM 1.8 mg/dL (1.8-2.4)
[2023-06-14 08:02] LABS: HEMATOCRIT 41.4 % (35.4-49); HEMOGLOBIN 15.1 GM/dL (11.7-16.9); MCH 34.5 pg (25.7-33.7); MCHC 36.4 g/dl (32.0-35.9); MEAN CELL VOLUME 94.9 fl (80-96); MEAN PLT VOLUME 6.7 fl (7.5-11.1); PLATELET COUNT 164 10^3/uL (134-434); RBC 4.37 M/mm3 (4.00-5.60); RDW 13.8 % (11.9-15.9); WHITE BLOOD COUNT 6.3 K/mm3 (4.0-10.0)
[2023-06-14 08:04] LABS: CREATININE 0.5 mg/dL (0.55-1.3); PHOSPHOROUS 3.4 mg/dL (2.5-4.9)
[2023-06-14 08:05] LABS: TOT PROT 6.6 g/dl (6.4-8.2)
[2023-06-14 08:06] LABS: BILIRUBIN,TOTAL 1.5 mg/dL (0.2-1)
[2023-06-14 15:35] LABS: POTASSIUM 3.9 mmol/L (3.5-5.1)
[2023-06-14 15:38] LABS: CALCIUM 8.7 mg/dL (8.5-10.1)
[2023-06-14 15:39] LABS: BLOOD UREA NITROGEN 9.1 mg/dL (7-18)
[2023-06-14 15:42] LABS: CREATININE 0.5 mg/dL (0.55-1.3)
[2023-06-14] MEDS: SODIUM CHLORIDE 1,000 ML IV SCH (20:52)
[2023-06-15 07:14] LABS: POTASSIUM 3.4 mmol/L (3.5-5.1)
[2023-06-15 07:24] LABS: CALCIUM 8.6 mg/dL (8.5-10.1)
[2023-06-15 07:25] LABS: ALBUMIN 3.1 g/dl (3.4-5.0); MAGNESIUM 1.6 mg/dL (1.8-2.4)
[2023-06-15 07:27] LABS: BILIRUBIN,DIRECT 0.5 mg/dL (0.0-0.2)
[2023-06-15 07:28] LABS: CREATININE 0.4 mg/dL (0.55-1.3); PHOSPHOROUS 3.8 mg/dL (2.5-4.9)
[2023-06-15 07:29] LABS: BILIRUBIN,TOTAL 1.6 mg/dL (0.2-1); TOT PROT 6.1 g/dl (6.4-8.2)
[2023-06-15] MEDS ORDERED: MAGNESIUM SULF 50% (8.12 MEQ/2 ML-1 GM VIAL) IVPB ONE (08:06)
[2023-06-15] MEDS: FOLIC ACID 1 MG TABLET (FP) PO SCH (10:11)
[2023-06-15] MEDS: MULTIVITAMINS THER W-MINERALS COMBO TABLET (FP) PO SCH (10:11)
[2023-06-15] MEDS: MAGNESIUM SULFATE IN WATER 2 GM/50 ML IVPB IVPB ONE (10:11)
[2023-06-15] MEDS: POTASSIUM CHLORIDE ORAL LIQUID 20 MEQ/15 ML PO ONE (13:54)
[2023-06-16 07:30] LABS: BASO % 0.2 % (0-2.0); EOS % 0.5 % (0-4.5); HEMATOCRIT 37.6 % (35.4-49); HEMOGLOBIN 13.7 GM/dL (11.7-16.9); LYMPH % 13.9 % (8-40); MCH 34.5 pg (25.7-33.7); MCHC 36.3 g/dl (32.0-35.9); MEAN PLT VOLUME 6.8 fl (7.5-11.1); MONO % 11.8 % (3.8-10.2); NEUT % 73.6 % (42.8-82.8); PLATELET COUNT 157 10^3/uL (134-434); RBC 3.96 M/mm3 (4.00-5.60); RDW 13.6 % (11.9-15.9); WHITE BLOOD COUNT 7.6 K/mm3 (4.0-10.0)
[2023-06-16 07:36] LABS: POTASSIUM 3.1 mmol/L (3.5-5.1)
[2023-06-16 07:49] LABS: ALBUMIN 3.1 g/dl (3.4-5.0); BLOOD UREA NITROGEN 10.2 mg/dL (7-18); CALCIUM 8.3 mg/dL (8.5-10.1)
[2023-06-16 07:52] LABS: CREATININE 0.4 mg/dL (0.55-1.3)
[2023-06-16 07:54] LABS: BILIRUBIN,TOTAL 1.7 mg/dL (0.2-1); TOT PROT 6.1 g/dl (6.4-8.2)
[2023-06-16] MEDS: MAGNESIUM SULF 50% (8.12 MEQ/2 ML-1 GM VIAL) IVPB ONE (09:47)
[2023-06-17 08:20] LABS: BASO % 0.3 % (0-2.0); EOS % 0.8 % (0-4.5); HEMATOCRIT 35.1 % (35.4-49); LYMPH % 15.7 % (8-40); MCH 34.4 pg (25.7-33.7); MEAN PLT VOLUME 6.7 fl (7.5-11.1); MONO % 11.5 % (3.8-10.2); NEUT % 71.7 % (42.8-82.8); PLATELET COUNT 178 10^3/uL (134-434); RBC 3.78 M/mm3 (4.00-5.60); RDW 13.1 % (11.9-15.9); WHITE BLOOD COUNT 6.4 K/mm3 (4.0-10.0)
[2023-06-17] MEDS: POTASSIUM CHLORIDE ORAL LIQUID 20 MEQ/15 ML PO ONE (08:20)
[2023-06-17 08:36] LABS: ALBUMIN 2.9 g/dl (3.4-5.0); BLOOD UREA NITROGEN 6.7 mg/dL (7-18); CALCIUM 8.2 mg/dL (8.5-10.1); MAGNESIUM 1.6 mg/dL (1.8-2.4)
[2023-06-17 08:39] LABS: CREATININE 0.4 mg/dL (0.55-1.3)
[2023-06-17 08:40] LABS: TOT PROT 5.9 g/dl (6.4-8.2)
[2023-06-17 08:41] LABS: BILIRUBIN,TOTAL 1.2 mg/dL (0.2-1)
[2023-06-17 09:29] LABS: N-TERMINAL BNP 132.6 pg/ml (5-450)
[2023-06-17] MEDS: MAGNESIUM 2GM/50ML STERILE WATER IVPB IVPB ONE (10:44)
[2023-06-17] MEDS: POTASSIUM CHLORIDE ORAL LIQUID 20 MEQ/15 ML PO SCH (10:45)
[2023-06-17] MEDS: amLODIPine BESYLATE 5 MG TABLET (FP) PO ONE (10:55)
[2023-06-17] MEDS: SODIUM CHLORIDE 1 GM TABLET PO SCH (17:20)
[2023-06-18 07:35] LABS: BASO % 0.4 % (0-2.0); EOS % 0.5 % (0-4.5); HEMATOCRIT 35.6 % (35.4-49); HEMOGLOBIN 13.2 GM/dL (11.7-16.9); LYMPH % 15.8 % (8-40); MCH 34.4 pg (25.7-33.7); MCHC 36.9 g/dl (32.0-35.9); MEAN CELL VOLUME 93.2 fl (80-96); MEAN PLT VOLUME 6.6 fl (7.5-11.1); MONO % 12.1 % (3.8-10.2); NEUT % 71.2 % (42.8-82.8); PLATELET COUNT 203 10^3/uL (134-434); RBC 3.82 M/mm3 (4.00-5.60); RDW 13.3 % (11.9-15.9); WHITE BLOOD COUNT 6.1 K/mm3 (4.0-10.0)
[2023-06-18 07:50] LABS: POTASSIUM 3.9 mmol/L (3.5-5.1)
[2023-06-18 07:59] LABS: BLOOD UREA NITROGEN 9.4 mg/dL (7-18); CALCIUM 8.4 mg/dL (8.5-10.1)
[2023-06-18 08:02] LABS: CREATININE 0.4 mg/dL (0.55-1.3)
[2023-06-18 08:03] LABS: BILIRUBIN,TOTAL 1.2 mg/dL (0.2-1)
[2023-06-18 08:04] LABS: TOT PROT 6.4 g/dl (6.4-8.2)
[2023-06-18] MEDS ORDERED: SODIUM CHLORIDE 1 GM TABLET PO SCH (08:15)
[2023-06-18] MEDS: MAGNESIUM 2GM/50ML STERILE WATER IVPB IVPB SCH (09:38)
[2023-06-18] MEDS: SODIUM CHLORIDE 1 GM TABLET PO ONE (09:42)
[2023-06-18] MEDS: SODIUM CHLORIDE 1 GM TABLET PO SCH (13:13)
[2023-06-18 14:42] VITALS: BMI 23.4
[2023-06-19 08:21] LABS: POTASSIUM 3.7 mmol/L (3.5-5.1)
[2023-06-19 08:27] LABS: CALCIUM 8.4 mg/dL (8.5-10.1)
[2023-06-19 08:28] LABS: ALBUMIN 3.2 g/dl (3.4-5.0); BLOOD UREA NITROGEN 13.1 mg/dL (7-18)
[2023-06-19 08:31] LABS: BILIRUBIN,TOTAL 1.2 mg/dL (0.2-1); CREATININE 0.5 mg/dL (0.55-1.3)
[2023-06-19 08:33] LABS: TOT PROT 6.6 g/dl (6.4-8.2)
[2023-06-19 08:42] LABS: BASO % 0.3 % (0-2.0); EOS % 0.2 % (0-4.5); HEMATOCRIT 36.9 % (35.4-49); HEMOGLOBIN 13.6 GM/dL (11.7-16.9); LYMPH % 12.6 % (8-40); MCH 34.7 pg (25.7-33.7); MCHC 36.9 g/dl (32.0-35.9); MEAN CELL VOLUME 94.2 fl (80-96); MEAN PLT VOLUME 6.7 fl (7.5-11.1); MONO % 9.5 % (3.8-10.2); NEUT % 77.4 % (42.8-82.8); PLATELET COUNT 218 10^3/uL (134-434); RBC 3.92 M/mm3 (4.00-5.60)
[2023-06-19 14:36] LABS: POTASSIUM 3.7 mmol/L (3.5-5.1)
[2023-06-19 14:37] LABS: CALCIUM 8.4 mg/dL (8.5-10.1)
[2023-06-19 14:38] LABS: BLOOD UREA NITROGEN 13.3 mg/dL (7-18)
[2023-06-19 14:41] LABS: CREATININE 0.6 mg/dL (0.55-1.3)
[2023-06-19] MEDS: SODIUM CHLORIDE 1 GM TABLET PO ONE (18:07)
[2023-06-19] MEDS: SODIUM CHLORIDE 500 ML IV STA (18:08)
[2023-06-19] MEDS: SODIUM CHLORIDE 1 GM TABLET PO SCH ×2 (18:54→21:24)
[2023-06-19 19:52] LABS: POTASSIUM 3.5 mmol/L (3.5-5.1)
[2023-06-19 19:54] LABS: CALCIUM 8.1 mg/dL (8.5-10.1)
[2023-06-19 19:58] LABS: CREATININE 0.5 mg/dL (0.55-1.3)
[2023-06-19] MEDS: POTASSIUM CHLORIDE ORAL LIQUID 20 MEQ/15 ML PO SCH (21:24)
[2023-06-20 07:07] LABS: BASO % 0.2 % (0-2.0); EOS % 0.1 % (0-4.5); HEMOGLOBIN 13.5 GM/dL (11.7-16.9); LYMPH % 10.7 % (8-40); MCHC 36.6 g/dl (32.0-35.9); MEAN CELL VOLUME 92.8 fl (80-96); MEAN PLT VOLUME 6.5 fl (7.5-11.1); MONO % 9.6 % (3.8-10.2); NEUT % 79.4 % (42.8-82.8); PLATELET COUNT 223 10^3/uL (134-434); RBC 3.98 M/mm3 (4.00-5.60); RDW 13.3 % (11.9-15.9); WHITE BLOOD COUNT 7.2 K/mm3 (4.0-10.0)
[2023-06-20 07:27] LABS: POTASSIUM 3.5 mmol/L (3.5-5.1)
[2023-06-20 07:31] LABS: CALCIUM 8.7 mg/dL (8.5-10.1)
[2023-06-20 07:32] LABS: ALBUMIN 3.3 g/dl (3.4-5.0)
[2023-06-20 07:35] LABS: CREATININE 0.4 mg/dL (0.55-1.3)
[2023-06-20 07:37] LABS: BILIRUBIN,TOTAL 1.3 mg/dL (0.2-1); TOT PROT 6.5 g/dl (6.4-8.2)
[2023-06-20 18:48] LABS: EPI CELLS 1 /uL (0-25.1); HYALINE CASTS 4 /uL (0-3.1); URINE APPEARANCE CLOUDY; URINE BACTERIA >9,000 /uL (0-1359); URINE BILIRUBIN NEGATIVE (NEGATIVE); URINE COLOR YELLOW; URINE GLUCOSE (UA) NEGATIVE (NEGATIVE); URINE KETONE NEGATIVE (NEGATIVE); URINE LEUK ESTERASE 2+ (NEGATIVE); URINE NITRITE POSITIVE (NEGATIVE); URINE PROTEIN NEGATIVE (NEGATIVE); URINE RBC 31 /uL (0-23.9); URINE WBC 798 /uL (0-25.8)
[2023-06-21 08:06] LABS: POTASSIUM 3.8 mmol/L (3.5-5.1)
[2023-06-21 08:13] LABS: CALCIUM 8.8 mg/dL (8.5-10.1)
[2023-06-21 08:14] LABS: ALBUMIN 3.1 g/dl (3.4-5.0); BLOOD UREA NITROGEN 10.4 mg/dL (7-18); MAGNESIUM 1.8 mg/dL (1.8-2.4)
[2023-06-21 08:17] LABS: BILIRUBIN,TOTAL 0.9 mg/dL (0.2-1); CREATININE 0.4 mg/dL (0.55-1.3); TOT PROT 6.3 g/dl (6.4-8.2)
[2023-06-21] MEDS: THIAMINE 100 MG TABLET PO SCH (09:37)
[2023-06-21] MEDS: IBUPROFEN 800 MG/8 ML IJ IVPB SCH (11:53)
[2023-06-21] MEDS: CEFAZOLIN 1 GM in DEXTROSE 5%-WATER - 50 ML IVPB SCH (12:20)
[2023-06-22 07:49] LABS: POTASSIUM 3.5 mmol/L (3.5-5.1)
[2023-06-22 07:54] LABS: CALCIUM 8.6 mg/dL (8.5-10.1)
[2023-06-22 07:55] LABS: ALBUMIN 2.9 g/dl (3.4-5.0); BLOOD UREA NITROGEN 12.5 mg/dL (7-18); MAGNESIUM 1.7 mg/dL (1.8-2.4)
[2023-06-22 07:57] LABS: CREATININE 0.5 mg/dL (0.55-1.3)
[2023-06-22 07:59] LABS: BILIRUBIN,TOTAL 0.7 mg/dL (0.2-1); TOT PROT 6.2 g/dl (6.4-8.2)
[2023-06-22] MEDS: MAGNESIUM 2GM/50ML STERILE WATER IVPB IVPB SCH (08:46)
[2023-06-22] MEDS: POTASSIUM CHLORIDE ORAL LIQUID 20 MEQ/15 ML PO SCH (09:37)
[2023-06-23 08:13] LABS: BASO % 0.5 % (0-2.0); EOS % 0.8 % (0-4.5); HEMATOCRIT 34.6 % (35.4-49); HEMOGLOBIN 12.5 GM/dL (11.7-16.9); LYMPH % 17.4 % (8-40); MCH 33.9 pg (25.7-33.7); MEAN CELL VOLUME 94.3 fl (80-96); MEAN PLT VOLUME 6.5 fl (7.5-11.1); MONO % 7.5 % (3.8-10.2); NEUT % 73.8 % (42.8-82.8); PLATELET COUNT 288 10^3/uL (134-434); RBC 3.67 M/mm3 (4.00-5.60); RDW 12.9 % (11.9-15.9); WHITE BLOOD COUNT 6.6 K/mm3 (4.0-10.0)
[2023-06-23 08:27] LABS: POTASSIUM 3.5 mmol/L (3.5-5.1)
[2023-06-23 08:33] LABS: HEMATOCRIT 34.8 % (35.4-49); HEMOGLOBIN 12.5 GM/dL (11.7-16.9); MCH 34.1 pg (25.7-33.7); MCHC 36.1 g/dl (32.0-35.9); MEAN CELL VOLUME 94.6 fl (80-96); MEAN PLT VOLUME 6.4 fl (7.5-11.1); PLATELET COUNT 283 10^3/uL (134-434); RBC 3.68 M/mm3 (4.00-5.60); RDW 12.7 % (11.9-15.9); WHITE BLOOD COUNT 6.6 K/mm3 (4.0-10.0)
[2023-06-23 08:40] LABS: CALCIUM 8.6 mg/dL (8.5-10.1)
[2023-06-23 08:41] LABS: BLOOD UREA NITROGEN 10.6 mg/dL (7-18); MAGNESIUM 1.8 mg/dL (1.8-2.4)
[2023-06-23 08:43] LABS: BILIRUBIN,TOTAL 0.6 mg/dL (0.2-1)
[2023-06-23 08:44] LABS: CREATININE 0.5 mg/dL (0.55-1.3); PHOSPHOROUS 3.5 mg/dL (2.5-4.9)
[2023-06-23 08:45] LABS: TOT PROT 6.2 g/dl (6.4-8.2)
[2023-06-23] MEDS: PIPERACILLIN/TAZOB 4.5 GM 4.5 GM in DEXTROSE 5%-WATER 100 ML IVPB SCH (14:44)
[2023-06-23] MEDS: POTASSIUM CHLORIDE ORAL LIQUID 20 MEQ/15 ML PO ONE (17:53)
[2023-06-23 18:11] LABS: RENIN ACTIVITY(PRA) 0.371 ng/mL/hr (0.167-5.380)
[2023-06-23] MEDS: SODIUM CHLORIDE 1 GM TABLET PO SCH (21:32)
[2023-06-23] MEDS: ATORVASTATIN CA 40 MG TABLET (FP) PO SCH (21:33)
[2023-06-24 14:08] LABS: HEMATOCRIT 32.8 % (35.4-49); HEMOGLOBIN 12.3 GM/dL (11.7-16.9); MCH 34.7 pg (25.7-33.7); MCHC 37.4 g/dl (32.0-35.9); MEAN CELL VOLUME 92.8 fl (80-96); MEAN PLT VOLUME 6.4 fl (7.5-11.1); PLATELET COUNT 309 10^3/uL (134-434); RBC 3.53 M/mm3 (4.00-5.60); WHITE BLOOD COUNT 5.2 K/mm3 (4.0-10.0)
[2023-06-24 14:33] LABS: POTASSIUM 3.5 mmol/L (3.5-5.1)
[2023-06-24 14:35] LABS: ALBUMIN 2.8 g/dl (3.4-5.0); BLOOD UREA NITROGEN 12.4 mg/dL (7-18); CALCIUM 8.5 mg/dL (8.5-10.1)
[2023-06-24 14:38] LABS: CREATININE 0.5 mg/dL (0.55-1.3)
[2023-06-24 14:40] LABS: TOT PROT 6.3 g/dl (6.4-8.2)
[2023-06-24] MEDS: PIPERACILLIN/TAZOB 4.5 GM 4.5 GM in DEXTROSE 5%-WATER 100 ML IVPB SCH (14:49)
[2023-06-24] MEDS: CEFEPIME HCL 1 GM VIAL (RESTRICTED TO ID) IVPB SCH (14:50)
[2023-06-24] MEDS: CEFEPIME 1 GM in DEXTROSE 5%-WATER 100 ML IVPB SCH (14:57)
[2023-06-24] MEDS: PIPERACILLIN/TAZOB 3.375 GM 3.375 GM in DEXTROSE 5%-WATER - 50 ML IVPB SCH (17:58)
[2023-06-25 07:20] LABS: POTASSIUM 3.7 mmol/L (3.5-5.1)
[2023-06-25 07:23] LABS: CALCIUM 8.5 mg/dL (8.5-10.1)
[2023-06-25 07:24] LABS: ALBUMIN 2.9 g/dl (3.4-5.0); BLOOD UREA NITROGEN 12.1 mg/dL (7-18); MAGNESIUM 1.8 mg/dL (1.8-2.4)
[2023-06-25 07:26] LABS: CREATININE 0.4 mg/dL (0.55-1.3); PHOSPHOROUS 3.8 mg/dL (2.5-4.9)
[2023-06-25 07:28] LABS: BILIRUBIN,TOTAL 0.6 mg/dL (0.2-1); TOT PROT 6.4 g/dl (6.4-8.2)
[2023-06-25 08:25] LABS: BASO % 1.1 % (0-2.0); EOS % 1.7 % (0-4.5); HEMATOCRIT 34.4 % (35.4-49); HEMOGLOBIN 12.8 GM/dL (11.7-16.9); LYMPH % 24.3 % (8-40); MCH 34.7 pg (25.7-33.7); MCHC 37.1 g/dl (32.0-35.9); MEAN CELL VOLUME 93.5 fl (80-96); MEAN PLT VOLUME 6.2 fl (7.5-11.1); MONO % 8.5 % (3.8-10.2); NEUT % 64.4 % (42.8-82.8); PLATELET COUNT 295 10^3/uL (134-434); RBC 3.68 M/mm3 (4.00-5.60); WHITE BLOOD COUNT 4.5 K/mm3 (4.0-10.0)
[2023-06-25] MEDS: SODIUM CHLORIDE 1 GM TABLET PO SCH (09:36)
[2023-06-26 07:21] LABS: BASO % 0.9 % (0-2.0); EOS % 1.5 % (0-4.5); HEMATOCRIT 35.1 % (35.4-49); HEMOGLOBIN 12.8 GM/dL (11.7-16.9); LYMPH % 30.5 % (8-40); MCH 33.8 pg (25.7-33.7); MCHC 36.3 g/dl (32.0-35.9); MEAN PLT VOLUME 6.2 fl (7.5-11.1); MONO % 9.1 % (3.8-10.2); PLATELET COUNT 305 10^3/uL (134-434); RBC 3.78 M/mm3 (4.00-5.60); RDW 12.8 % (11.9-15.9); WHITE BLOOD COUNT 3.9 K/mm3 (4.0-10.0)
[2023-06-26 07:37] LABS: POTASSIUM 3.8 mmol/L (3.5-5.1)
[2023-06-26 07:44] LABS: CALCIUM 8.6 mg/dL (8.5-10.1)
[2023-06-26 07:45] LABS: MAGNESIUM 1.6 mg/dL (1.8-2.4)
[2023-06-26 07:48] LABS: CREATININE 0.6 mg/dL (0.55-1.3); PHOSPHOROUS 3.6 mg/dL (2.5-4.9)
[2023-06-26 07:49] LABS: BILIRUBIN,TOTAL 0.8 mg/dL (0.2-1); TOT PROT 6.5 g/dl (6.4-8.2)
[2023-06-26] MEDS: THIAMINE 100 MG TABLET PO SCH (09:19)
[2023-06-26] MEDS: MAGNESIUM SULF 50% (8.12 MEQ/2 ML-1 GM VIAL) IVPB ONE (09:19)
[2023-06-26] MEDS: FOLIC ACID 1 MG TABLET (FP) PO SCH (09:19)
[2023-06-26 12:03] VITALS: BP 115/73; PULSE 95
[2023-06-26 15:38] VITALS: RESP 18; TEMP 97.5
== END 2023-06-26 18:04 | disposition home or self-care (01) | DRG 43 ==
LOC: JER 15:36 → JERBED 19:00 → J4W 06-12 03:35 → UNDODISIN 06-12 11:10
PROVIDERS: ADMIT Internal Medicine; ATTEND Internal Medicine
DX: G61.81 Chronic inflammatory demyelinating polyneuritis (principal); N39.0 Urinary tract infection, site not specified; E83.42 Hypomagnesemia; E87.6 Hypokalemia; F10.239 Alcohol dependence with withdrawal, unspecified; E51.2 Wernicke's encephalopathy; I10 Essential (primary) hypertension; I16.0 Hypertensive urgency; E78.5 Hyperlipidemia, unspecified; N40.0 Benign prostatic hyperplasia without lower urinary tract symptoms; E11.65 Type 2 diabetes mellitus with hyperglycemia; E87.1 Hypo-osmolality and hyponatremia; E11.42 Type 2 diabetes mellitus with diabetic polyneuropathy; R45.1 Restlessness and agitation; R33.8 Other retention of urine; I80.8 Phlebitis and thrombophlebitis of other sites; R29.6 Repeated falls; N40.1 Benign prostatic hyperplasia with lower urinary tract symptoms; B96.89 Other specified bacterial agents as the cause of diseases classified elsewhere; R25.1 Tremor, unspecified; R74.01 Elevation of levels of liver transaminase levels; R63.4 Abnormal weight loss; Z68.23 Body mass index [BMI] 23.0-23.9, adult; S02.2XXA Fracture of nasal bones, initial encounter for closed fracture; W17.89XA Other fall from one level to another, initial encounter; Y93.9 Activity, unspecified; Y92.098 Other place in other non-institutional residence as the place of occurrence of the external cause; Y99.9 Unspecified external cause status
CPT/HCPCS: 0241U-QW; 36415; 70450-TC; 70551-TC; 71045-TC-FY; 72125-TC; 72131-TC; 72148-TC; 76705-TC; 80048; 80053; 80061; 80076; 81003; 82085; 82088; 82248; 82550; 82570; 82607; 82962; 83036; 83735; 83880; 83930; 83935; 84100; 84133; 84155; 84165; 84207; 84244; 84300; 84439; 84443; 84484; 85025; 85027; 85610; 85730; 86850; 86900; 86901; 87086; 87186; 87899; 93005; 93010; 97116-GP; 97161-GP; 99285-25